=== PATIENT | female | born 1970 | race Caucasian/White ===

== ENCOUNTER 2018-04-20 10:49 | Emergency (ER) | payer OTHER ==
[~2018-04-20] VITALS: Ht 162.6 cm; Wt 86.2 kg
[2018-04-20 12:03] VITALS: BP 129/81
[2018-04-20] MEDS ORDERED: KETOROLAC TROMETH 60MG/2ML VIAL IM ONE (12:30)
[2018-04-20] MEDS ORDERED: ONDANSETRON ODT 4 MG TAB PO ONE (12:30)
== END 2018-04-20 12:48 | disposition home or self-care (01) ==
LOC: ER 10:49
DX: S06.0X0A Concussion without loss of consciousness, initial encounter (principal); S16.1XXA Strain of muscle, fascia and tendon at neck level, initial encounter; W22.8XXA Striking against or struck by other objects, initial encounter; Y93.89 Activity, other specified; Y99.8 Other external cause status; Y92.89 Other specified places as the place of occurrence of the external cause
CPT/HCPCS: 70450; 72125; 96372; 99284; J1885; Q0162

== ENCOUNTER 2020-04-17 18:16 | Emergency (ER) | payer OTHER ==
[~2020-04-17] VITALS: Ht 162.6 cm; Wt 72.1 kg
[2020-04-17 22:25] VITALS: BP 130/82
== END 2020-04-17 22:33 | disposition home or self-care (01) ==
LOC: ER 18:16
DX: U07.1 COVID-19 (principal); J98.8 Other specified respiratory disorders; Z90.89 Acquired absence of other organs
CPT/HCPCS: 36415; 71045; 87426

== ENCOUNTER → 2021-11-22 | Outpatient (CLI) | payer OTHER ==
[2021-11-22 11:44] LABS: Basophils # (auto) 0 10 ^3/uL (0-0.2); Basophils % (auto) 0.6 % (0.0-2.0); Eosinophils # (auto) 0.1 10 ^3/uL (0-0.8); Eosinophils % (auto) 2.5 % (0.0-7.0); Hematocrit 42.4 % (36.0-46.0); Hemoglobin 14.2 g/dL (12.2-16.2); Lymphocytes # (auto) 2.1 10 ^3/uL (0.4-5.4); Lymphocytes % (auto) 44.4 % (10.0-50.0); Mean Corpuscular Hemoglobin 31.1 pg (28.0-32.0); Mean Corpuscular Hgb Conc. 33.5 g/dL (32.0-36.0); Mean Corpuscular Volume 92.9 fL (80.0-100.0); Monocytes # (auto) 0.2 10 ^3/uL (0-1.3); Monocytes % (auto) 5.3 % (0.0-12.0); Neutrophils # (auto) 2.2 10 ^3/uL (1.6-8.6); Neutrophils % (auto) 47.2 % (37.0-80.0); Red Blood Cells 4.56 10^6/uL (4.0-5.20); Red Cell Distribution Width 13.6 % (11.8-14.3); White Blood Cell 4.6 10^3/uL (4.4-10.8)
[2021-11-22 11:47] LABS: Urine Blood Negative /uL (Negative); Urine Specific Gravity 1.018 (1.001-1.035)
[2021-11-22 11:51] LABS: Albumin 3.9 g/dL (3.4-5.0); Potassium 4.9 mmol/L (3.5-5.1)
[2021-11-22 11:57] LABS: BUN/Creatinine Ratio 22.1; Bilirubin, Total 0.5 mg/dL (0.2-1.0); CRP High Sensitivity 0.07 mg/dL (< 0.3); Total Protein 7.7 g/dL (6.4-8.2)
[2021-11-22 11:59] LABS: Free T4 (Free Thyroxine) 1.2 ng/dL (0.89-1.76)
== END | disposition home or self-care (01) ==
LOC: LAB 08:23
PROVIDERS: ATTEND Internal Medicine
DX: D51.3 Other dietary vitamin B12 deficiency anemia (principal); D64.9 Anemia, unspecified; E11.9 Type 2 diabetes mellitus without complications; E55.9 Vitamin D deficiency, unspecified; I10 Essential (primary) hypertension; R00.2 Palpitations; R53.1 Weakness; R30.0 Dysuria
CPT/HCPCS: 36415; 80053; 80061; 81003; 82306; 82607; 83036; 84439; 84443; 85025; 85652; 86141

== ENCOUNTER → 2022-01-04 | Outpatient (CLI) | payer OTHER ==
[~2022-01-04] VITALS: Ht 165.1 cm; Wt 70.3 kg
== END | disposition home or self-care (01) ==
LOC: Rad HDHVI 13:23
PROVIDERS: ATTEND Internal Medicine
DX: I34.1 Nonrheumatic mitral (valve) prolapse (principal); R42 Dizziness and giddiness; Z82.49 Family history of ischemic heart disease and other diseases of the circulatory system
CPT/HCPCS: 93017

== ENCOUNTER 2023-08-28 02:39 | Inpatient (IN) | payer OTHER ==
[~2023-08-28] VITALS: Ht 162.6 cm; Wt 80.4 kg
[2023-08-28 03:13] LABS: Basophils # (auto) 0 10 ^3/uL (0-0.2); Basophils % (auto) 0.6 % (0.0-2.0); Eosinophils # (auto) 0.2 10 ^3/uL (0-0.8); Eosinophils % (auto) 3.2 % (0.0-7.0); Hematocrit 39.9 % (36.0-46.0); Hemoglobin 13.3 g/dL (12.2-16.2); Lymphocytes # (auto) 2.8 10 ^3/uL (0.4-5.4); Lymphocytes % (auto) 52.3 % (10.0-50.0); Mean Corpuscular Hemoglobin 30.6 pg (28.0-32.0); Mean Corpuscular Hgb Conc. 33.2 g/dL (32.0-36.0); Monocytes # (auto) 0.4 10 ^3/uL (0-1.3); Neutrophils % (auto) 36.9 % (37.0-80.0); Red Blood Cells 4.34 10^6/uL (4.0-5.20); White Blood Cell 5.4 10^3/uL (4.4-10.8)
[2023-08-28 03:22] LABS: Chloride 106 mmol/L (98-107); Sodium 140 mmol/L (136-145)
[2023-08-28 03:23] LABS: Anion Gap 8 (5-15); Carbon Dioxide 26 mmol/L (20-30)
[2023-08-28 03:24] LABS: Calcium 9.7 mg/dL (8.7-10.4)
[2023-08-28 03:26] LABS: INR 0.98 (0.9-1.15); Partial Thromboplastin Time 27.9 SEC (24.5-34.5); Prothrombin Time 10.3 sec (9.3-11.8)
[2023-08-28 03:29] LABS: BUN/Creatinine Ratio 25.9 (10.0-20.0); Blood Urea Nitrogen 22 mg/dL (9-23); Glucose 90 mg/dL (74-106)
[2023-08-28] MEDS: ASPirin 81 mg TAB PO ONE (05:12)
[2023-08-28] MEDS: ONDANSETRON HCL 4 MG/2 ML VIAL IV ONE (05:12)
[2023-08-28] MEDS: MORPHINE SULFATE 4 MG/ML SYR/VIAL IV ONE (05:13)
[2023-08-28] MEDS: MAALOX PLUS or MAALOX 30 ML PO ONE (06:38)
[2023-08-28] MEDS: PANTOPRAZOLE 40 MG/10 ML VIAL INJ IV ONE (06:38)
[2023-08-28 07:57] VITALS: PULSE 58; RESP 14; O2SAT 97
[2023-08-28] MEDS ORDERED: MORPHINE SULFATE 4 MG/ML SYR/VIAL IV PRN (09:15)
[2023-08-28] MEDS ORDERED: NITROGLYCERIN 0.4 MG SL TAB SL PRN (09:15)
[2023-08-28] MEDS: DOCUSATE SOD 100 MG CAP PO SCH (09:59)
[2023-08-28] MEDS: ASPirin 81 mg TAB PO SCH (09:59)
[2023-08-28] MEDS: ONDANSETRON HCL 4 MG/2 ML VIAL IV PRN (09:59)
[2023-08-28] MEDS: METOPROLOL TARTRATE 25 MG TAB PO SCH (10:00)
[2023-08-28 10:24] LABS: Prothrombin Time 10.5 sec (9.3-11.8)
[2023-08-28 11:13] LABS: Triglycerides 179 mg/dL (< 150)
[2023-08-28 11:14] LABS: LDL Cholesterol 101 mg/dL (< 100)
[2023-08-28 11:15] LABS: Cholesterol 220 mg/dL (< 200); HDL Cholesterol 94 mg/dL (40-59)
[2023-08-28] MEDS: ACETAMINOPHEN 325 MG TAB PO PRN (12:39)
[2023-08-28 17:37] VITALS: BP 102/70; PULSE 61; RESP 16; TEMP 97.5; O2SAT 98
[2023-08-28 17:55] VITALS: RESP 16; O2SAT 98
[2023-08-28 20:00] VITALS: BP 102/59; PULSE 77; RESP 14; TEMP 97.6; O2SAT 96
[2023-08-28] MEDS ORDERED: ALPR0.254 PO (20:03)
[2023-08-28 20:30] VITALS: BP 102/59; PULSE 69; RESP 14; RESP 16; TEMP 97.6; O2SAT 96
[2023-08-28] MEDS: ALPRAZolam 0.25 MG TAB PO PRN (20:54)
[2023-08-28] MEDS: ATORVASTATIN 20 MG TAB PO SCH (21:35)
[2023-08-29 00:45] VITALS: BP 140/59; PULSE 57; RESP 18; O2SAT 98
[2023-08-29 05:00] VITALS: BP 115/77; PULSE 60; RESP 16; TEMP 97.9; O2SAT 98
[2023-08-29 07:26] LABS: Basophils # (auto) 0 10 ^3/uL (0-0.2); Basophils % (auto) 0.6 % (0.0-2.0); Eosinophils # (auto) 0.2 10 ^3/uL (0-0.8); Eosinophils % (auto) 4.7 % (0.0-7.0); Hematocrit 39.4 % (36.0-46.0); Hemoglobin 13.2 g/dL (12.2-16.2); Lymphocytes # (auto) 1.8 10 ^3/uL (0.4-5.4); Lymphocytes % (auto) 47.8 % (10.0-50.0); Mean Corpuscular Hemoglobin 30.8 pg (28.0-32.0); Mean Corpuscular Hgb Conc. 33.5 g/dL (32.0-36.0); Monocytes # (auto) 0.3 10 ^3/uL (0-1.3); Monocytes % (auto) 7.8 % (0.0-12.0); Neutrophils # (auto) 1.5 10 ^3/uL (1.6-8.6); Neutrophils % (auto) 39.1 % (37.0-80.0); Red Blood Cells 4.29 10^6/uL (4.0-5.20); Red Cell Distribution Width 13.7 % (11.8-14.3); White Blood Cell 3.7 10^3/uL (4.4-10.8)
[2023-08-29 07:41] LABS: Albumin 3.8 g/dL (3.2-4.8); Alkaline Phosphatase 55 U/L (46-116); Aspartate Aminotransferase 15 U/L (13-40); BUN/Creatinine Ratio 22.9 (10.0-20.0); Blood Urea Nitrogen 19 mg/dL (9-23); Chloride 107 mmol/L (98-107); Glucose 94 mg/dL (74-106); LDL Cholesterol 97 mg/dL (< 100); Potassium 4.2 mmol/L (3.5-5.1); Sodium 139 mmol/L (136-145); Triglycerides 124 mg/dL (< 150)
[2023-08-29 07:42] LABS: Anion Gap 4 (5-15); Bilirubin, Total 0.5 mg/dL (0.2-1.0); Calcium 9.2 mg/dL (8.5-10.1); Carbon Dioxide 28 mmol/L (20-30); Cholesterol 199 mg/dL (< 200); HDL Cholesterol 81 mg/dL (40-59); Total Protein 6.4 g/dL (5.7-8.2)
[2023-08-29 07:49] LABS: Alanine Aminotransferase 15 U/L (7-40)
[2023-08-29 08:00] VITALS: PULSE 66
[2023-08-29 09:00] VITALS: BP 110/68; PULSE 67; RESP 18; TEMP 97.8; O2SAT 97
[2023-08-29] MEDS ORDERED: PANT40T PO (11:03)
[2023-08-29] MEDS ORDERED: ALPR1TAB2 PO (11:03)
[2023-08-29 13:00] VITALS: BP 124/83; PULSE 68; RESP 18; TEMP 98; O2SAT 100
[2023-08-29 13:53] VITALS: BP 107/61; PULSE 90; RESP 20; TEMP 97.4; O2SAT 97
== END 2023-08-29 16:15 | disposition home or self-care (01) | DRG 311 ==
LOC: ER 02:39 → TELE 10:35 → TELE-WESTW 17:23
PROVIDERS: ADMIT Nurse Practitioner Family; ATTEND Family Medicine
DX: I20.9 Angina pectoris, unspecified (principal); F41.9 Anxiety disorder, unspecified; I34.1 Nonrheumatic mitral (valve) prolapse; E66.9 Obesity, unspecified; Z90.710 Acquired absence of both cervix and uterus; Z90.721 Acquired absence of ovaries, unilateral; Z68.30 Body mass index [BMI] 30.0-30.9, adult
CPT/HCPCS: 36415; 71045; 80048; 80053; 80061; 83036; 83735; 83880; 84443; 84484; 85025; 85379; 85610; 85730; 93005; 93306; 96374; 96375; 96376; C9113; G0378; J2405